=== PATIENT | female | born 1995 | race Two or more races ===

== ENCOUNTER 2025-03-04 18:41 | Emergency (ER) | payer OTHER ==
[~2025-03-04] VITALS: Ht 162.6 cm; Wt 72.7 kg
[2025-03-04 18:46] VITALS: BP 110/68; PULSE 81; RESP 17; TEMP 98.4; O2SAT 96
--- NOTE | 2025-03-04 19:40 | Physician Documentation ---
History of Present Illness ~ Chief Complaint: Urinary Symptoms Stated Complaint: UTI Time Seen by MD: 19:40 HPI 29-year-old female presented to the emergency department due to concerns that she may have a urinary tract infection. Symptoms have been persistent over the last few days. They have included frequency, dysuria. She had a pharmacy test strip that was positive x2. She has been pushing fluids for the last few days and then taking extra probiotics. No chills or fever, no flank pain, no history of kidney stones. No N/V/D. Medication Reconciliation Allergies: Coded Allergies: ibuprofen (Unverified Allergy, Unknown, 03/04/25) Review of Systems ROS As stated above in the HPI, otherwise all systems are reviewed and negative. Physical Exam Vital Signs: Temperature: 98.4, Source: Oral, Heart Rate: 81, Respiratory Rate: 17, BP: 110/68, Pulse Oximetry: 96, Weight: 72.730 Physical Exam General: Alert, no apparent distress. HEENT: PERRL, EOMI, no injection, moist mucous membranes. Neck: Full range of motion. Respiratory: Lungs clear, no respiratory distress. Chest: No accessory muscle use. Cardiovascular: Regular rate and rhythm, no murmurs. Gastrointestinal: Soft, nontender, nondistended. Bowels sounds present. No CVA tenderness. Extremities: Normal range of motion, no deformity. Neurologic: Oriented x4. Psychiatric: Normal mood and affect. Skin: Normal color, warm and dry. No edema, no ecchymosis. Progress Results/Orders Results/Orders Vital Signs 03/04/25 18:46 Temp 98.4 Pulse 81 Resp 17 B/P (MAP) 110/68 Pulse Ox 96 Laboratory Tests Test 03/04/25 18:53 Urine Specimen Description Non-specified Urine Color Yellow Urine Clarity Clear Urine pH 7.5 Urine Specific [place] 1.010 Urine Protein Negative Urine Glucose (UA) Negative Urine Ketones Negative Urine Occult Blood Negative Urine Nitrite Negative Urine Bilirubin Negative Urine Urobilinogen 0.2 Urine Leukocyte Esterase Negative Urine Culture Indicated Not ind Volume Urine Centrifuged 10 ml Urine Comment Medical Decision Making Additional Comment This is a well-appearing 29-year-old female who presented due to symptoms of urinary tract infection. Her urine sample showed no evidence of infection. She denies concerns for STIs. She had no CVA tenderness. She is encouraged to continue and taking plenty of fluid and to return if worse at any time. Departure Time of Disposition: 20:05 Disposition: 01 HOME / SELF CARE / HOMELESS Impression: Primary Impression: Dysuria Condition: Stable Discharge Instructions: Dysuria Additional Instructions: No UTI. Return if worse. Referrals: NO PRIMARY CARE PROVIDER (PCP) Education Educated: Patient Educated regarding: diagnosis, treatment, prognosis, need for follow up Signature Scribe Signature: no scribe Attestation: The note accurately reflects work and decisions made by me.Jerad Peters NP 03/04/25 20:17 JERAD DIMAS NP Mar 04, 2025 19:40
[2025-03-04 19:47] LABS: BILIRUBIN,URINE NEGATIVE (Neg); CLARITY,URINE CLEAR (Clear); COLOR,URINE YELLOW (Yellow); GLUCOSE, URINE NEGATIVE (Neg); KETONES,URINE NEGATIVE (Neg); LEUKOCYTE ESTERASE ,URINE NEGATIVE (Neg); NITRITES, URINE NEGATIVE (Neg); OCCULT BLOOD,URINE NEGATIVE (Neg); PH,URINE 7.5 (4.8-8.0); PROTEIN,URINE NEGATIVE (Neg); UROBILINOGEN,URINE 0.2 E.U/dL (0.2-1.0)
[2025-03-04 19:51] LABS: UA COLLECTION TYPE NON-SPECIFIED
== END 2025-03-04 20:11 | disposition home or self-care (01) ==
LOC: ER 18:42
DX: R30.0 Dysuria (principal); R35.0 Frequency of micturition; Z88.6 Allergy status to analgesic agent
CPT/HCPCS: 81003; 99283

== ENCOUNTER 2025-08-30 18:31 | Emergency (ER) | payer OTHER ==
[~2025-08-30] VITALS: Ht 162.6 cm; Wt 72.7 kg
[2025-08-30 19:14] LABS: CREATININE 0.61 MG/DL (0.40-0.90); TOTAL CARBON DIOXIDE 26.7 MMOL/L (24-32); eCRCL 115 ML/MIN; eGFR > 90 ML/MIN
[2025-08-30 19:16] LABS: MEAN PLATELET VOLUME 8.4 FL (7.4-10.4); RED CELL DISTRIBUTION WIDTH 16.7 % (11.5-14.5)
[2025-08-30] MEDS: ondansetron 4mg rapidly disintigrating tab PO ONE ×2 (19:28→21:43)
[2025-08-30 20:09] LABS: URINE HCG NEGATIVE (NEG)
[2025-08-30 20:19] LABS: LEUKOCYTE ESTERASE ,URINE NEGATIVE (Neg); NITRITES, URINE NEGATIVE (Neg); OCCULT BLOOD,URINE NEGATIVE (Neg)
[2025-08-30 20:45] LABS: UA COLLECTION TYPE NON-SPECIFIED
[2025-08-30] MEDS: normal saline 1000ML IV soln IVB ONE (21:25)
--- NOTE | 2025-08-30 21:25 | Physician Documentation ---
History of Present Illness ~ Chief Complaint: Abdominal Pain w/vomiting Stated Complaint: VOMITING/NAUSEA Time Seen by MD: 19:03 Mode of Arrival: POV HPI This is a 30-year-old female who presents with four days of nausea and vomiting, patient reports some epigastric discomfort due to vomiting. Patient reports she has been having difficulty keeping food, drink, and prescribed medications down due to nausea and vomiting for the past four days. Patient reports she is still having bowel movements without diarrhea or blood in stool. Patient reports no fever. 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 Physical Exam Vital Signs: Temperature: 98.0, Source: Oral, Heart Rate: 83, Respiratory Rate: 14, BP: 110/72, Pulse Oximetry: 97, Weight: 72.730 Oxygen Flow Rate: 0 Physical Exam VITALS: Reviewed and as above. GENERAL: Alert, nontoxic appearing, no apparent distress. RESPIRATORY: No increased work of breathing, no respiratory distress, speaking in full clear sentences, clear lung sounds in all anne CV: Regular rate and rhythm no murmur BACK: No CVA tenderness GI: Soft, nontender, no rebound, no guarding Progress Results/Orders Results/Orders Completed Orders - NIRALI JACKMAN WHARF ATTENDANT Ondansetron Disint. Tablet (Zofran Odt T (08/30/25 19:05) Normal Saline 1000ml (0.9% Sodium Chlori (08/30/25 20:55) Ondansetron Disint. Tablet (Zofran Odt T (08/30/25 21:20) Vital Signs 08/30/25 08/30/25 08/30/25 18:44 21:02 21:47 Temp 98.0 98.2 Pulse 83 80 Resp 14 18 B/P (MAP) 110/72 116/70 Pulse Ox 97 99 O2 Flow Rate 0 Laboratory Tests Test 08/30/25 18:54 08/30/25 19:04 White Blood Count 6.9 Red Blood Count 4.75 Hemoglobin 11.7 L Hematocrit 36.3 Mean Corpuscular Volume 76.5 L Mean Corpuscular Hemoglobin 24.7 L Mean Corpuscular Hemoglobin Concent 32.4 L Red Cell Distribution Width 16.7 H Platelet Count 318 Mean Platelet Volume 8.4 Neutrophils (%) (Auto) 53.9 Lymphocytes (%) (Auto) 30.1 Monocytes (%) (Auto) 8.7 Eosinophils (%) (Auto) 6.5 H Basophils (%) (Auto) 0.8 Neutrophils # (Auto) 3.7 Lymphocytes # (Auto) 2.1 Monocytes # (Auto) 0.6 Eosinophils # (Auto) 0.4 Basophils # (Auto) 0.1 CBC Comment Sodium Level 140 Potassium Level 3.7 Chloride Level 107 Carbon Dioxide Level 26.7 Anion Gap 6 L Blood Urea Nitrogen 11 Creatinine 0.61 Estimated GFR/1.73 m2 > 90 BUN/Creatinine Ratio 18.0 Glucose Level 100 Calcium Level 8.2 L Total Bilirubin 0.2 Aspartate Amino Transf (AST/SGOT) 21 Alanine Aminotransferase (ALT/SGPT) 26 Alkaline Phosphatase 76 Total Protein 7.9 Albumin 3.7 Globulin 4.2 Albumin/Globulin Ratio 0.9 L Lipase 23 Chemistry Comments Urine Specimen Description Non-specified Urine Color Yellow Urine Clarity Clear Urine pH 6.5 Urine Specific [place] 1.020 Urine Protein Negative Urine Glucose (UA) Negative Urine Ketones 15 H Urine Occult Blood Negative Urine Nitrite Negative Urine Bilirubin Negative Urine Urobilinogen 0.2 Urine Leukocyte Esterase Negative Urine Culture Indicated Not ind Volume Urine Centrifuged 10 ml Urine HCG, Qualitative Negative Urine Comment Medical Decision Making Additional information obtaine: N/A Findings This 30-year-old female presented with four days of nausea and vomiting without significant abdominal pain, physical exam was reassuring as abdomen was soft and nontender with active bowel sounds, additionally reassuring patient is continuing to have bowel movements and passing gas making suspicion for bowel obstruction low, patient was medicated for nausea and vomiting with Zofran and IV rehydration reporting significant improvement in symptoms. As patient reported significant improvement in symptoms and is able to tolerate oral intake and does not have abdominal pain and with shared decision-making further imaging not indicated. Lab work was without significant abnormality and reassuring, physical exam benign patient is otherwise well-appearing hemodynamically stable and appropriate for outpatient follow up. Patien discharged with prescription for Zofran. Patient provided home care instructions return to care precautions clonidine follow up instructions which she verbalized understanding of. Diff Dx GI Bleed:Consideration: Unlikely: AE fistula, Angiodysplasia, Bleeding diathesis, Blood loss anemia, Carcinoma, Diverticulosis, Diverticulitis, Esophageal varicies, Esophagitis, Gastritis, Gastroenteritis, Inflammatory BD, Wendi-Reed syndrome, Meckel's diverticulum, PUD, Other Diff Dx Pain:Considerations: Include: Appendicitis, Bowel obstruction, Cholangitis, Cholecystitis, Cholelithasis, Constipation, Ectopic , Gastritis/PUD, Gastroenteritis, Inflammatory BD, Mass, Ovarian cyst/torsion, Urinary obstruction, Urinary tract infection, Urolithiasis Diff Dx N/V/D:Considerations: Include: Appendicitis, Bowel obstruction, DKA, Diarrhea - bacterial, Diarrhea - parasitic, Diarrhea - viral, Diverticulitis, Diverticulosis, Food poisoning, Gastroenteritis, Hypovolemia, Hypotension, Inflammatory BD, Impaction, Malnutrition, Pancreatitis, , Urolithiasis, Urinary obstruction, UTI Diff Dx Rectal:Considerations: Unlikely: Fissure, Fistula, Foreign body, Impaction, Perirectal abscess, Rectal prolapse, Subcutaneous abscess, Thrombosed hemorrhoid, Ulcer, UTI, Other Departure Time of Disposition: 21:26 Disposition: 01 HOME / SELF CARE / HOMELESS Impression: Primary Impression: Vomiting Qualified Codes: R11.2 - Nausea with vomiting, unspecified Condition: Improved Discharge Instructions: Viral Gastroenteritis, Adult, [id number] Additional Instructions: This is likely gastroenteritis though if symptoms return or worsen please return for re-evaluation. Please use the prescribed Zofran as needed to maintain oral intake. Please follow up with your primary care provider in the next few days. Please return to the emergency department for any new or worsening concerning symptoms. Departure Forms: Excuse form Work or School Excused From: Work Excuse beginning now through the following date: Sep 02, 2025 Referrals: NO PRIMARY CARE PROVIDER (PCP) Prescriptions ONDANSETRON ODT 4mg tablet (ONDANSETRON ODT) 4 Mg Tab.rapdis 1 TAB PO Q6H PRN PRN for nausea/vomiting for 4 Days, #16 TAB 0 Refills Prov: NIRALI JACKMAN 08/30/25 Education Educated: Patient Educated regarding: diagnosis, treatment, prognosis, need for follow up Signature Scribe Signature: No scribe Attestation: The note accurately reflects work and decisions made by me.RACHID Haley 08/31/25 12:40 NIRALI JACKMAN Aug 30, 2025 21:25
[2025-08-30] MEDS ORDERED: ONDA-243 PO (21:27)
[2025-08-30 21:47] VITALS: BP 116/70; PULSE 80; RESP 18; TEMP 98.2; O2SAT 99
== END 2025-08-30 21:47 | disposition home or self-care (01) ==
LOC: ER 18:32 → EEVIPCON 18:32 → ER 21:47
DX: R11.2 Nausea with vomiting, unspecified (principal); R10.13 Epigastric pain; Z88.6 Allergy status to analgesic agent
CPT/HCPCS: 36415; 80053; 81003; 81025; 83690; 85025; 96360; 99283; J7030